=== PATIENT | female | born 1945 | race Caucasian/White ===

== ENCOUNTER 2017-07-27 09:46 | Inpatient (IN) | payer MEDICARE, OTHER ==
[2017-07-27] MEDS ORDERED: CEFAZOLIN 2 GM/50 ML (PMX) 50 ML IVPB (10:30)
[2017-07-27] MEDS ORDERED: LACTATED RINGER'S 1,000 ML IV* (10:30)
[2017-07-27] MEDS ORDERED: GELATIN SIZE 100 SPONGE (11:03)
[2017-07-27] MEDS: D5W-0.45 NACL + KCL 20 MEQ 1,000 ML IV ×2 (11:52→22:00)
[2017-07-27] MEDS ORDERED: ROCURONIUM 50 MG INJ (11:53)
[2017-07-27] MEDS ORDERED: PROPOFOL 20 ML ×2 (11:53→13:20)
[2017-07-27] MEDS ORDERED: CEFAZOLIN 1 GM INJ (11:53)
[2017-07-27] MEDS ORDERED: GLYCOPYRROLATE 0.4 MG INJ (11:53)
[2017-07-27] MEDS ORDERED: NEOSTIGMINE 3 MG/3 ML SYRINGE (11:53)
[2017-07-27] MEDS ORDERED: DEXAMETHASONE 4 MG/ML 1 ML INJ (11:54)
[2017-07-27] MEDS ORDERED: ONDANSETRON 4 MG INJ ×2 (11:54→13:42)
[2017-07-27] MEDS ORDERED: FENTAnyl 50 MCG/ML VIAL (11:54)
[2017-07-27] MEDS ORDERED: MIDAZOLAM 1 MG/ML 2 ML INJ (11:54)
[2017-07-27] MEDS ORDERED: AL HYDROX/MG HYDROX/SIMETH 30 ML CUP PO (12:00)
[2017-07-27] MEDS ORDERED: CEFAZOLIN 1 GM/50 ML (PMX) 50 ML IVPB (12:00)
[2017-07-27] MEDS ORDERED: HYDROmorphONE 0.5 MG/0.5 ML SYG IV (12:00)
[2017-07-27] MEDS ORDERED: ACETAMINOPHEN 325 MG TAB PO (12:00)
[2017-07-27] MEDS ORDERED: CEPASTAT LOZENGE MT (12:00)
[2017-07-27] MEDS ORDERED: traMADol 50 MG TAB PO ×2 (12:00)
[2017-07-27] MEDS ORDERED: CARISOPRODOL 350 MG TAB PO (12:00)
[2017-07-27] MEDS ORDERED: NALOXONE (0.4 MG/ML) INJ IV (12:00)
[2017-07-27] MEDS ORDERED: BISACODYL 10 MG SUPP PR (12:00)
[2017-07-27] MEDS: BUPIVACAINE 0.25%/EPI (SDV) 30 ML INJ (12:41)
[2017-07-27] MEDS: CA CHLORIDE 10% 10 ML SYRINGE (12:42)
[2017-07-27] MEDS: SURGIFOAM POWDER 1 GM KIT (12:42)
[2017-07-27] MEDS: POLYMYXIN/BACITRACIN 1L IRRIG (12:42)
[2017-07-27] MEDS: HEPARIN 1000 UNITS/ML 10 ML INJ (12:42)
[2017-07-27] MEDS: THROMBIN 5000 UNIT VIAL (12:42)
[2017-07-27] MEDS ORDERED: EPHEDrine SULFATE 50 MG/5 ML SYG (12:56)
[2017-07-27] MEDS ORDERED: SUGAMMADEX SODIUM 200 MG/2 ML VIAL IV (13:22)
[2017-07-27] MEDS: FENTAnyl 50 MCG/ML VIAL (13:45)
[2017-07-27] MEDS: HYDROmorphONE 0.2 MG/ML PCA IV (14:25)
[2017-07-27] MEDS ORDERED: FENTAnyl 50 MCG/ML VIAL IV ×3 (14:30)
[2017-07-27] MEDS ORDERED: IPRATROPIUM (NEB) 0.5 MG/2.5 ML AMP HHN (14:30)
[2017-07-27] MEDS ORDERED: TRIMETHOBENZAMIDE 100 MG/ML VIAL IM (14:30)
[2017-07-27] MEDS ORDERED: EPHEDrine SULFATE 50 MG/5 ML SYG IV (14:30)
[2017-07-27] MEDS ORDERED: MIDAZOLAM 1 MG/ML 2 ML INJ IV (14:30)
[2017-07-27] MEDS ORDERED: LABETALOL HCL 20MG INJ IV (14:30)
[2017-07-27] MEDS ORDERED: OXYCODONE/ACETAMINOPHEN (5/325) TAB PO ×2 (14:30)
[2017-07-27] MEDS ORDERED: MEPERIDINE 25 MG INJ IV (14:30)
[2017-07-27] MEDS ORDERED: ALBUTEROL 0.083% (NEB) 2.5 MG/3 ML AMP HHN (14:30)
[2017-07-27] MEDS ORDERED: DIPHENHYDRAMINE 50 MG INJ IV (14:30)
[2017-07-27] MEDS ORDERED: hydrALAzine 20 MG INJ IV (14:30)
[2017-07-27] MEDS ORDERED: HYDROmorphONE (0.2 MG/ML) 10ML SYG IV ×3 (14:30)
[2017-07-27] MEDS: ONDANSETRON 4 MG INJ IV ×2 (16:47→21:59)
[2017-07-27] MEDS: DOCUSATE SODIUM 100 MG CAP PO (20:48)
[2017-07-27] MEDS: CEFAZOLIN 1 GM/50 ML (PMX) 50 ML IVPB (20:51)
[2017-07-27] MEDS: DIPHENHYDRAMINE 50 MG INJ IV (20:51)
[2017-07-28] MEDS: CEFAZOLIN 1 GM/50 ML (PMX) 50 ML IVPB ×2 (04:32→11:40)
[2017-07-28 05:22] LABS: ADD MAN DIFF? NO
[2017-07-28 05:27] LABS: BASOPHILS % 0.1 % (0.0-2.0); HEMATOCRIT 32.4 % (37.0-47.0); LYMPHOCYTES # 0.9 10^3/ul (0.8-2.9); LYMPHOCYTES % 7.7 % (15.0-51.0); MEAN CORPUSCULAR HEMOGLOBIN 29.3 pg (29.0-33.0); MEAN CORPUSCULAR VOLUME 86.2 fl (82.0-101.0); MEAN PLATELET VOLUME 9.7 fl (7.4-10.4); MONOCYTE # 0.8 10^3/ul (0.3-0.9); MONOCYTES % 6.3 % (0.0-11.0); NEUTROPHIL # 10.4 10^3/ul (1.6-7.5); NEUTROPHILS % 85.6 % (39.0-77.0); PLATELET COUNT 252 10^3/UL (140-415); RED BLOOD COUNT 3.76 10^6/ul (4.20-5.40); RED CELL DISTRIBUTION WIDTH 12.8 % (11.5-14.5)
[2017-07-28 05:27] LABS: WHITE BLOOD COUNT 12.1 10^3/ul (4.8-10.8)
[2017-07-28 05:45] LABS: ANION GAP 14 (8-16); BLOOD UREA NITROGEN 15 mg/dl (7-20); CALCIUM 9.2 mg/dl (8.4-10.2); CARBON DIOXIDE 28 mmol/L (21-31); CHLORIDE 106 mmol/L (97-110); CREATININE 0.73 mg/dl (0.44-1.00); GLUCOSE 223 mg/dl (70-220); MAGNESIUM 1.8 mg/dl (1.7-2.5); POTASSIUM 4.5 mmol/L (3.5-5.1); SODIUM 143 mmol/L (135-144)
[2017-07-28] MEDS: DOCUSATE SODIUM 100 MG CAP PO (08:19)
[2017-07-28] MEDS: D5W-0.45 NACL + KCL 20 MEQ 1,000 ML IV (08:20)
== END 2017-07-28 15:50 | disposition home or self-care (01) | DRG 30 ==
LOC: REC 09:46 → MS1 17:15
PROC: 00NY0ZZ Release Lumbar Spinal Cord, Open Approach (ICD-10-PCS; principal; 2017-07-27 11:54)
PROC: 01NB0ZZ Release Lumbar Nerve, Open Approach (ICD-10-PCS; 2017-07-27 11:54)
PROC: 00BT0ZZ Excision of Spinal Meninges, Open Approach (ICD-10-PCS; 2017-07-27 11:54)
PROC: 07DR3ZZ Extraction of Iliac Bone Marrow, Percutaneous Approach (ICD-10-PCS; 2017-07-27 11:54)
DX: G96.19 Other disorders of meninges, not elsewhere classified (principal); M48.061 Spinal stenosis, lumbar region without neurogenic claudication; M54.16 Radiculopathy, lumbar region; R42 Dizziness and giddiness
CPT/HCPCS: 72020; 80048; 83735; 85025; 86999; 88304; 88311; 97116; 97162; 97530